=== PATIENT | female | born 1995 | race Caucasian/White ===

== ENCOUNTER 2017-10-05 17:16 | Emergency (ER) | payer MEDICAID ==
[~2017-10-05] VITALS: Ht 170.2 cm; Wt 100.3 kg
[~2017-10-05 17:16] MED LIST: LACRIL OP; LEVA15HF4 IH; PRED10TA PO; VALA100027 PO
[2017-10-05] MEDS ORDERED: NAPR-56 PO (17:46)
[2017-10-05] MEDS ORDERED: PENI250T2 PO (17:46)
[2017-10-05 17:52] VITALS: BP 132/102
== END 2017-10-05 17:54 | disposition home or self-care (01) ==
LOC: ER 17:17
DX: S02.5XXA Fracture of tooth (traumatic), initial encounter for closed fracture (principal); K08.89 Other specified disorders of teeth and supporting structures; F12.90 Cannabis use, unspecified, uncomplicated; F15.90 Other stimulant use, unspecified, uncomplicated; F11.90 Opioid use, unspecified, uncomplicated; J45.909 Unspecified asthma, uncomplicated; E11.9 Type 2 diabetes mellitus without complications; Z79.899 Other long term (current) drug therapy; W22.8XXA Striking against or struck by other objects, initial encounter; Y93.89 Activity, other specified; Y92.89 Other specified places as the place of occurrence of the external cause; Y99.9 Unspecified external cause status
CPT/HCPCS: 99283

== ENCOUNTER 2018-02-14 15:48 | Emergency (ER) | payer MEDICAID ==
[~2018-02-14] VITALS: Ht 170.2 cm; Wt 90.0 kg
[2018-02-14 15:53] VITALS: BP 140/94
== END 2018-02-14 16:21 | disposition home or self-care (01) ==
LOC: ER 15:48
DX: Z02.89 Encounter for other administrative examinations (principal); F12.90 Cannabis use, unspecified, uncomplicated; F15.90 Other stimulant use, unspecified, uncomplicated; F11.90 Opioid use, unspecified, uncomplicated; F17.200 Nicotine dependence, unspecified, uncomplicated; E11.9 Type 2 diabetes mellitus without complications; J45.909 Unspecified asthma, uncomplicated; Z79.899 Other long term (current) drug therapy
CPT/HCPCS: 99283

== ENCOUNTER 2019-12-14 22:24 | Emergency (ER) | payer MEDICAID ==
[~2019-12-14] VITALS: Ht 167.6 cm; Wt 127.3 kg
[~2019-12-14 22:24] MED LIST changes: -VALA100027 PO; +VALA100031 PO
[2019-12-14 22:27] VITALS: BP 138/81
[2019-12-14] MEDS ORDERED: cephalexin 250mg capsule PO ONE (22:40)
[2019-12-14] MEDS ORDERED: sulfamethoxazole/trimethoprim DS (800/160mg) tablet PO ONE (22:40)
[2019-12-14] MEDS ORDERED: SULF1TAB49 PO (22:46)
[2019-12-14] MEDS ORDERED: CEPH-572 PO (22:46)
== END 2019-12-14 22:52 | disposition home or self-care (01) ==
LOC: ER 22:25
DX: T63.391A Toxic effect of venom of other spider, accidental (unintentional), initial encounter (principal); L03.113 Cellulitis of right upper limb; M79.89 Other specified soft tissue disorders; J45.909 Unspecified asthma, uncomplicated; E11.9 Type 2 diabetes mellitus without complications; F12.90 Cannabis use, unspecified, uncomplicated; F15.90 Other stimulant use, unspecified, uncomplicated; F11.90 Opioid use, unspecified, uncomplicated; Z72.89 Other problems related to lifestyle; Z79.2 Long term (current) use of antibiotics; Z79.899 Other long term (current) drug therapy; Y92.89 Other specified places as the place of occurrence of the external cause
CPT/HCPCS: 99283

== ENCOUNTER 2020-03-21 12:16 | Emergency (ER) | payer MEDICAID ==
[~2020-03-21] VITALS: Ht 167.6 cm; Wt 122.5 kg
[2020-03-21 12:24] VITALS: BP 134/82
== END 2020-03-21 13:42 | disposition home or self-care (01) ==
LOC: ER 12:17
DX: F10.129 Alcohol abuse with intoxication, unspecified (principal); J45.909 Unspecified asthma, uncomplicated; E11.9 Type 2 diabetes mellitus without complications; F15.10 Other stimulant abuse, uncomplicated; Z79.899 Other long term (current) drug therapy; Z00.01 Encounter for general adult medical examination with abnormal findings
CPT/HCPCS: 99281

== ENCOUNTER 2020-03-22 18:52 | Emergency (ER) | payer MEDICAID ==
[~2020-03-22] VITALS: Ht 167.6 cm; Wt 127.3 kg
[2020-03-22] MEDS ORDERED: buprenorphine/naloxone 8mg/2mg SL tablet SL PRN (20:25)
[2020-03-22] MEDS ORDERED: cloNIDine 0.1 mg tablet PO ONE (20:25)
[2020-03-22] MEDS ORDERED: LORazepam 2 mg/ml vial IM ONE (20:25)
[2020-03-22] MEDS ORDERED: ondansetron 4mg rapidly disintigrating tab PO ONE (20:25)
[2020-03-22 20:40] LABS: ALANINE AMINOTRANSFERASE 26 U/L (12-78); ALBUMIN 3.3 G/DL (3.4-5.0); ALBUMIN/GLOBULIN RATIO 0.6 (1.1-1.5); ALKALINE PHOSPHATASE 76 IU/L (46-116); ANION GAP 8 (8-16); ASPARTATE AMINO TRANSFERASE 27 U/L (10-37); BILIRUBIN,TOTAL 0.3 MG/DL (0.1-1.0); BLOOD UREA NITROGEN 3 MG/DL (7-18); CALCIUM 9.6 MG/DL (8.5-10.1); CHLORIDE 106 MMOL/L (99-107); GLUCOSE 97 MG/DL (70-104); POTASSIUM 3.3 MMOL/L (3.5-5.1); SODIUM 142 MMOL/L (135-145); TOTAL CARBON DIOXIDE 28.5 MMOL/L (24-32); TOTAL PROTEIN 8.8 G/DL (6.4-8.2)
[2020-03-22 20:49] LABS: BUN/CREATININE RATIO 4.2 (6.6-38.0); CREATININE 0.72 MG/DL (0.40-0.90); eGFR > 90 ML/MIN
[2020-03-22] MEDS ORDERED: buprenorphine/naloxone 8MG-2MG SUBlingual film SL PRN (20:58)
[2020-03-22 21:00] VITALS: BP 147/99
== END 2020-03-22 22:35 | disposition home or self-care (01) ==
LOC: ER 18:52
DX: F11.23 Opioid dependence with withdrawal (principal); F15.10 Other stimulant abuse, uncomplicated; F14.10 Cocaine abuse, uncomplicated
CPT/HCPCS: 36415; 80053; 96372; 99284; J2060; 99283

== ENCOUNTER 2020-03-26 20:36 | Emergency (ER) | payer MEDICAID ==
[~2020-03-26] VITALS: Ht 167.6 cm; Wt 120.5 kg
[2020-03-26 20:39] VITALS: BP 142/94
[2020-03-26] MEDS ORDERED: LIDOcaine 1% W/epiNEPHrine 1:200,000 10ml vial IJ ONE (21:25)
[2020-03-26] MEDS ORDERED: TETanus/Pertussis (Acell)/Diphther VAC/PF (Tdap-Adult) 0.5ml syringe IMVAC ONE (21:25)
[2020-03-26] MEDS ORDERED: LIDOcaine 1% w/epiNEPHrine 1:200,000 30ml vial IJ ONE (21:30)
--- NOTE | 2020-03-26 22:37 | NUR ---
1/4 inch dressing and 4x4's at bedside for provider as requested.
== END 2020-03-26 22:48 | disposition home or self-care (01) ==
LOC: ER 20:36
DX: L02.211 Cutaneous abscess of abdominal wall (principal); F15.90 Other stimulant use, unspecified, uncomplicated; F11.90 Opioid use, unspecified, uncomplicated; Z79.899 Other long term (current) drug therapy
CPT/HCPCS: 10060; 90471; 90715; 99283

== ENCOUNTER 2020-03-29 15:58 | Emergency (ER) | payer MEDICAID ==
[~2020-03-29] VITALS: Ht 167.6 cm; Wt 127.3 kg
[2020-03-29 16:02] VITALS: BP 125/63
[2020-03-29] MEDS ORDERED: CEPH250T PO (16:29)
== END 2020-03-29 16:35 | disposition home or self-care (01) ==
LOC: ER 15:59
DX: L02.211 Cutaneous abscess of abdominal wall (principal); J45.909 Unspecified asthma, uncomplicated; E11.9 Type 2 diabetes mellitus without complications; F15.10 Other stimulant abuse, uncomplicated; Z48.00 Encounter for change or removal of nonsurgical wound dressing
CPT/HCPCS: 99283

== ENCOUNTER 2021-01-15 18:13 | Emergency (ER) | payer MEDICAID ==
[~2021-01-15] VITALS: Ht 167.6 cm; Wt 118.0 kg
[2021-01-15 18:19] VITALS: BP 136/98
== END 2021-01-15 19:33 | disposition left against medical advice (07) ==
LOC: ER 18:13
DX: L02.31 Cutaneous abscess of buttock (principal); J45.909 Unspecified asthma, uncomplicated; E11.9 Type 2 diabetes mellitus without complications; Z53.21 Procedure and treatment not carried out due to patient leaving prior to being seen by health care provider